=== PATIENT | female | born 1975 | race Caucasian/White ===

== ENCOUNTER 2023-01-17 16:49 | Emergency (ER) | payer OTHER, SELFPAY ==
--- NOTE | ~2023-01-17 | CT_ITS ---
EXAMINATION: CT brain wo con DATE: 01/17/2023 18:28 INDICATION: htn, GAMING, tingling extremities . TECHNIQUE: Computed tomography (CT) of the head was performed without intravenous contrast. The mA wa s adjusted according to patient size. Iterative reconstruction technique was employed. The dose-lengt h product was 605.33 mGy-cm. COMPARISON: None. FINDINGS: No acute intracranial hemorrhage or extra-axial fluid collection. No hydrocephalus, mass, or herniation. No acute ischemic infarct. Unremarkable dural venous sinus attenuation. No acute osseous abnormality. Minimal ethmoid mucosal thickening. Air-fluid level in the left maxillary sinus. Trace left mastoid f luid. The remaining aerated spaces are clear. Mild chronic white matter change. 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 IMPRESSION: No acute intracranial process. Left maxillary sinus findings may represent acute sinusitis in the mojgan ropriate clinical context. Reviewed, dictated and finalized at location K. IMPRESSION: No acute intracranial process. Left maxillary sinus findings may represent acut e sinusitis in the appropriate clinical context.
[2023-01-17 16:56] VITALS: BP 180/108; PULSE 73; RESP 18; TEMP 36.4; O2SAT 100
[2023-01-17 18:00] VITALS: PULSE 75; RESP 15; O2SAT 97
--- NOTE | 2023-01-17 18:15 | ECG_ITS ---
Measurements Intervals [place] Rate: 61 P: 23 ND: 149 QRS: -7 QRSD: 78 T: 37 QT: 425 QTc: 431 Interpretive Statements SINUS RHYTHM NORMAL ECG COMPARED TO ECG 05/16/2019 18:14:57 NO SIGNIFICANT CHANGES Electronically Signed On 01-17-2023 21:16:23 CDT by Khris Obrien D.O.
[2023-01-17 18:18] VITALS: PULSE 73; RESP 17; O2SAT 99
[2023-01-17 18:33] VITALS: PULSE 70; RESP 16; O2SAT 100
[2023-01-17 19:05] VITALS: PULSE 68; RESP 15; O2SAT 97
[2023-01-17 19:07] LABS: Basophils Percent Auto 0.6 % (0.2-1.2); Eosinophils Absolute Auto 0.4 K/mm3 (0-0.3); Eosinophils Percent Auto 5.9 % (0-4.4); Hematocrit 40.5 % (37.0-47.0); Hemoglobin 13.5 g/dL (12.0-15.0); Immature Granulocyte Absolute 0.01 K/mm3 (0.00-0.031); Immature Granulocyte Percent A 0.1 % (0-0.5); Lymphocytes Absolute Auto 2.49 K/mm3 (0.9-3.2); Lymphocytes Percent Auto 35.8 % (18.3-44.2); Mean Corpuscular HGB Conc 33.3 g/dl (32-36); Mean Corpuscular Hemoglobin 30.7 pg (26-34); Mean Platelet Volume 9.9 fl (7.4-10.4); Monocytes Absolute Auto 0.5 K/mm3 (0.1-0.6); Monocytes Percent Auto 7.6 % (2.6-8.5); Neutrophils Absolute Auto 3.5 K/mm3 (1.3-6.7); Platelet Count Result 305 k/mm3 (150-375); Red Cell Distribution Width 13.2 % (11.5-14.5)
[2023-01-17 19:16] VITALS: BP 209/122; PULSE 75; RESP 15; O2SAT 99
--- NOTE | 2023-01-17 19:33 | ED.RECABL ---
HPI - Recheck/Abnormal Lab/Rx General Chief Complaint: Recheck/Abnormal Lab/Rx Stated Complaint: tingling arms and hands Time Seen by Provider: 01/17/23 18:15 Source: patient Mode of arrival: ambulatory Limitations: no limitations History of Present Illness HPI narrative: Patient is a 47 y/o female who presents to the ED with c/o Related Data Allergies Allergy/AdvReac Type Severity Reaction Status Date / Time No Known Allergies Allergy Verified 01/17/23 16:49 Course Vital Signs Vital signs: Vital Signs Temperature 97.6 F 01/17/23 16:56 Pulse Rate 73 01/17/23 16:56 Respiratory Rate 18 01/17/23 16:56 Blood Pressure 180/108 H 01/17/23 16:56 Pulse Oximetry 100 01/17/23 16:56 Oxygen Delivery Room Air 01/17/23 16:56 Temperature 97.6 F 01/17/23 16:56 Pulse Rate 68 01/17/23 19:05 Respiratory Rate 15 01/17/23 19:05 Blood Pressure 180/108 H 01/17/23 16:56 Pulse Oximetry 97 01/17/23 19:05 Oxygen Delivery Room Air 01/17/23 16:56 MDM - Recheck/Abnormal Lab/Rx Medical Records Attestation: I reviewed the patient's medical records. Lab Data Attestation: I reviewed the patient's lab results. 01/17/23 19:02 01/17/23 19:02 Labs: Lab Results 01/17/23 Range/Units 19:02 WBC 7.0 (4.5-10.0) K/mm3 RBC 4.40 (4.2-5.4) M/mm3 Hgb 13.5 (12.0-15.0) g/dL Hct 40.5 (37.0-47.0) % MCV 92.0 (80-100) fl MCH 30.7 (26-34) pg MCHC 33.3 (32-36) g/dl RDW 13.2 (11.5-14.5) % Plt Count 305 (150-375) k/mm3 MPV 9.9 (7.4-10.4) fl Immature Gran % (Auto) 0.1 (0-0.5) % Neut % (Auto) 50.0 (45.5-73.1) % Lymph % (Auto) 35.8 (18.3-44.2) % [place] % (Auto) 7.6 (2.6-8.5) % Eos % (Auto) 5.9 H (0-4.4) % Baso % (Auto) 0.6 (0.2-1.2) % Lymph # (Auto) 2.49 (0.9-3.2) K/mm3 [place] # (Auto) 0.5 (0.1-0.6) K/mm3 Eos # (Auto) 0.4 H (0-0.3) K/mm3 Baso # (Auto) 0.0 (0.0-0.1) K/mm3 Abs Immat Gran (auto) 0.01 (0.00-0.031) K/mm3 Absolute Neuts (auto) 3.5 (1.3-6.7) K/mm3 Absolute Nucleated RBC 0.0 (0.0-0.012) K/mm3 Nucleated RBC % 0.0 (0.0-0.2) % Sodium Pending Potassium Pending Chloride Pending Carbon Dioxide Pending Anion Gap Pending BUN Pending Creatinine Pending Estim Creat Clear Calc Pending Estimated GFR Pending Glucose Pending Calcium Pending Total Bilirubin Pending AST Pending ALT Pending Alkaline Phosphatase Pending Troponin I Pending Total Protein Pending Albumin Pending Imaging Data Attestation: I personally reviewed and interpreted this imaging study as follows: ECG Data EKG #1: Attestation: I personally reviewed and interpreted this ECG as follows: ECG completion date: 01/17/23 ECG completion time: 19:08 EKG Interpretation: normal rate (61), sinus rhythm and no ST changes Discharge Plan Discharge Follow-up/Referrals: PHYSICIAN,LOG POND WORKER [Primary Care Provider] -
[2023-01-17 19:35] LABS: Alanine Aminotransferase 21 U/L (6-35); Albumin Level 4.4 g/dL (3.5-5.1); Alkaline Phosphatase 81 U/L (38-126); Anion Gap 3 mmol/L (8-16); Aspartate Amino Transferase 40 U/L (14-36); Bilirubin,Total 0.5 mg/dL (0.2-1.3); Blood Urea Nitrogen 14 mg/dL (7-17); Calcium 8.8 mg/dL (8.4-10.2); Carbon Dioxide 31 mmol/L (22-30); Chloride 103 mmol/L (98-107); Estimated CRCL calculation 81 ml/min; Estimated Glomerular Filt Rate > 60; Glucose 88 mg/dL (65-110); Potassium 4.6 mmol/L (3.4-5.0); Sodium 137 mmol/L (137-145); Troponin I < 0.012 ng/mL (0.000-0.034)
--- NOTE | 2023-01-17 19:53 | PC.NURSE ---
spoke with pt at 1951 at [phone] in regards to her eloping with an iv in. Pt states she is coming back to have it removed.
--- NOTE | 2023-01-17 20:35 | PC.NURSE ---
CALLED [facility] [place] DEPT TO GO TO PT'S HOUSE AND CONFIRM THAT HER IV IS OUT. PT NEVER RETURNED TO ED TO HAVE IT TAKEN OUT PREVIOUSLY DISCUSSED WITH PT OVER PHONE.
== END 2023-01-17 19:50 | disposition left against medical advice (07) ==
PROVIDERS: Emergency Provider Physician Assistant
DX: I10 Essential (primary) hypertension (principal)
CPT/HCPCS: 36415; 70450; 80053; 84484; 85025; 93005; 99199

== ENCOUNTER 2023-06-15 02:42 | Emergency (ER) | payer OTHER, SELFPAY ==
--- NOTE | ~2023-06-15 | XR_ITS ---
EXAMINATION: XR chest 2V DATE: 06/15/2023 04:47 INDICATION: Left chest pain TECHNIQUE: Frontal and lateral views of the chest are obtained COMPARISON: 05/16/2019 FINDINGS: The lungs are free of acute opacities. No pleural effusion or pneumothorax. The cardiomedia stinal silhouette is normal. There is mild thoracic spondylosis. IMPRESSION: 1. No acute cardiopulmonary abnormality. Reviewed, dictated and finalized at location F.
[2023-06-15 02:53] VITALS: BP 163/116; PULSE 88; RESP 18; TEMP 36.8; O2SAT 100
--- NOTE | 2023-06-15 03:20 | ECG_ITS ---
Measurements Intervals [place] Rate: 72 P: 18 [place]: 152 QRS: -17 QRSD: 79 T: 35 QT: 395 QTc: 433 Interpretive Statements SINUS RHYTHM WITHIN NORMAL LIMITS COMPARED WITH 01/17/2023, NO DIFFERENCE Electronically Signed On 06-15-2023 9:28:14 CDT by Homero Huitron M.D.
--- NOTE | 2023-06-15 03:20 | PC.NURSE ---
Pt approached triage desk and reports chest pressure. new orders placed.
[2023-06-15 04:09] LABS: Appearance Urine Clear (Clear); Bilirubin Urine Negative (Negative); Blood Urine Negative (Negative); Color Urine Yellow (Yellow); Glucose Urine UA Negative (Negative); Ketones Urine Negative (Negative); Leukocyte Esterase Ur Negative LEU/UL (Negative); Nitrate Urine Negative (Negative); Protein Urine Negative (Negative); Specific Grav Ur 1.006 (1.001-1.035); Urobilinogen Urine 0.2 mg/dL (<2.0); pH Urine 5.5 (5.0-9.0)
[2023-06-15] MEDS: ASPIRIN 81 MG CHEWABLE TABLET 324 MG PO (04:22)
[2023-06-15 04:26] LABS: Barbiturate Screen Urine Negative (Negative); Benzodiazepines Screen Urine Negative (Negative)
[2023-06-15 04:36] LABS: Basophils Absolute Auto 0.1 K/mm3 (0.0-0.1); Basophils Percent Auto 0.8 % (0.2-1.2); Eosinophils Absolute Auto 0.3 K/mm3 (0-0.3); Eosinophils Percent Auto 3.8 % (0-4.4); Hematocrit 42.4 % (37.0-47.0); Hemoglobin 13.7 g/dL (12.0-15.0); Immature Granulocyte Absolute 0.02 K/mm3 (0.00-0.031); Immature Granulocyte Percent A 0.3 % (0-0.5); Immature Platelet Fraction Pct 3.9 % (0.9-11.2); Lymphocytes Absolute Auto 1.86 K/mm3 (0.9-3.2); Lymphocytes Percent Auto 24.5 % (18.3-44.2); Mean Corpuscular HGB Conc 32.3 g/dl (32-36); Mean Corpuscular Hemoglobin 31.3 pg (26-34); Mean Corpuscular Volume 96.8 fl (80-100); Mean Platelet Volume 10.2 fl (7.4-10.4); Monocytes Absolute Auto 0.6 K/mm3 (0.1-0.6); Monocytes Percent Auto 7.4 % (2.6-8.5); Neutrophils Absolute Auto 4.8 K/mm3 (1.3-6.7); Neutrophils Percent Auto 63.2 % (45.5-73.1); Platelet Count Result 291 k/mm3 (150-375); Red Blood Count 4.38 M/mm3 (4.2-5.4); Red Cell Distribution Width 13.3 % (11.5-14.5); White Blood Count 7.6 K/mm3 (4.5-10.0)
[2023-06-15 04:38] LABS: Cannabinoid Screen Urine Negative (Negative); Cocaine Screen Urine Positive (Negative); Methadone Screen Urine Negative (Negative); Opiate Screen Urine Negative (Negative); Phencyclidine Screen Urine Negative (Negative)
[2023-06-15 04:39] LABS: Add Urine Microscopic? NO
[2023-06-15 04:45] LABS: Alanine Aminotransferase 18 U/L (6-35); Albumin Level 4.2 g/dL (3.5-5.1); Alkaline Phosphatase 84 U/L (38-126); Anion Gap 6 mmol/L (8-16); Aspartate Amino Transferase 30 U/L (14-36); Bilirubin,Total 0.4 mg/dL (0.2-1.3); Blood Urea Nitrogen 10 mg/dL (7-17); Calcium 8.8 mg/dL (8.4-10.2); Carbon Dioxide 22 mmol/L (22-30); Chloride 107 mmol/L (98-107); Estimated CRCL calculation 72 ml/min; Estimated Glomerular Filt Rate > 60; Glucose 93 mg/dL (65-110); Potassium 3.7 mmol/L (3.4-5.0); Sodium 135 mmol/L (137-145)
[2023-06-15 04:56] LABS: Troponin I 0.018 ng/mL (0.000-0.034)
[2023-06-15 05:16] LABS: Amphetamine Screen Urine Positive (Negative)
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
[2023-06-15 07:20] VITALS: PULSE 74; RESP 12
[2023-06-15 07:54] LABS: Troponin I < 0.012 ng/mL (0.000-0.034)
[2023-06-15 08:18] VITALS: BP 140/107; PULSE 82; RESP 16; O2SAT 100
== END 2023-06-15 08:24 | disposition home or self-care (01) ==
PROVIDERS: Physician Assistant; Preventive Medicine Aerospace Medicine; Emergency Provider General Practice
DX: F14.10 Cocaine abuse, uncomplicated (principal); F15.10 Other stimulant abuse, uncomplicated; I10 Essential (primary) hypertension
CPT/HCPCS: 36415; 71046; 80053; 80307; 81003; 84484; 85025; 85055; 93005; 99284; A9270

== ENCOUNTER 2024-04-16 22:01 | Emergency (ER) | payer OTHER, MEDICAID, SELFPAY ==
[2024-04-16 22:02] VITALS: BP 101/68; PULSE 105; RESP 16; TEMP 37.4; O2SAT 96
[2024-04-16 22:26] LABS: Basophils Absolute Auto 0.1 K/mm3 (0.0-0.1); Basophils Percent Auto 0.4 % (0.2-1.2); Eosinophils Absolute Auto 0.1 K/mm3 (0-0.3); Eosinophils Percent Auto 0.3 % (0-4.4); Hematocrit 41.9 % (37.0-47.0); Hemoglobin 13.9 g/dL (12.0-15.0); Immature Granulocyte Absolute 0.11 K/mm3 (0.00-0.031); Immature Granulocyte Percent A 0.6 % (0-0.5); Lymphocytes Absolute Auto 1.94 K/mm3 (0.9-3.2); Lymphocytes Percent Auto 10.3 % (18.3-44.2); Mean Corpuscular HGB Conc 33.2 g/dl (32-36); Mean Corpuscular Hemoglobin 31.7 pg (26-34); Mean Corpuscular Volume 95.7 fl (80-100); Mean Platelet Volume 10.4 fl (7.4-10.4); Monocytes Absolute Auto 1.1 K/mm3 (0.1-0.6); Monocytes Percent Auto 5.8 % (2.6-8.5); Neutrophils Absolute Auto 15.6 K/mm3 (1.3-6.7); Neutrophils Percent Auto 82.6 % (45.5-73.1); Platelet Count Result 291 k/mm3 (150-375); Red Blood Count 4.38 M/mm3 (4.2-5.4); Red Cell Distribution Width 13.1 % (11.5-14.5); White Blood Count 18.8 K/mm3 (4.5-10.0)
[2024-04-16 22:40] LABS: Alanine Aminotransferase 20 U/L (6-35); Albumin Level 4.5 g/dL (3.5-5.1); Alkaline Phosphatase 107 U/L (38-126); Anion Gap 11 mmol/L (4-12); Aspartate Amino Transferase 27 U/L (14-36); Bilirubin,Total 0.7 mg/dL (0.2-1.3); Blood Urea Nitrogen 14 mg/dL (7-17); Calcium 9.3 mg/dL (8.4-10.2); Carbon Dioxide 25 mmol/L (22-30); Chloride 99 mmol/L (98-107); Estimated CRCL calculation 60 ml/min; Estimated Glomerular Filt Rate > 60; Glucose 97 mg/dL (65-110); Lipase 31 U/L (23-300); Potassium 3.7 mmol/L (3.4-5.0); Sodium 135 mmol/L (137-145)
[2024-04-16 23:02] LABS: Influenza A QL RT-PCR Negative (Negative); Influenza B QL RT-PCR Negative (Negative); RSV RNA, RT-PCR Negative (Negative); SARS-CoV-2 RNA PCR Negative (Negative)
[2024-04-16 23:22] LABS: Add Urine Microscopic? YES; Appearance Urine Cloudy (Clear); Bacteria Urine None Seen /hpf; Bilirubin Urine 1+ (Negative); Blood Urine Negative (Negative); Color Urine Dark Yellow (Yellow); Glucose Urine UA Negative (Negative); Ketones Urine 2+ mg/dL (Negative); Leukocyte Esterase Ur Trace LEU/UL (Negative); Mucus Urine Present /lpf; Need Manual Microscopic Reviewed; Nitrate Urine Negative (Negative); Protein Urine 1+ mg/dL (Negative); Specific Grav Ur 1.034 (1.001-1.035); Squamous Epithelial Cell Urine Few /hpf (Few); pH Urine 5.5 (5.0-9.0)
[2024-04-17 00:50] VITALS: BP 100/52; PULSE 51; RESP 16; TEMP 36.9; O2SAT 97
--- NOTE | 2024-04-17 02:05 | PC.NURSE ---
no answer at triage
== END 2024-04-17 02:05 | disposition left against medical advice (07) ==
PROVIDERS: Emergency Provider Emergency Medicine
DX: R05.9 Cough, unspecified (principal)
CPT/HCPCS: 36415; 80053; 81001; 83690; 85025; 87086; 87637; 99199